=== PATIENT | female | born 1975 | race American Indian/Alaskan Native ===

== ENCOUNTER 2019-12-03 09:36 | Day surgery (SDC) | payer OTHER ==
[2019-12-02 10:19] LABS: Absolute Lymphocytes (CBC) 2.6 K/uL (0.7-4.9); Basophils % 0.8 % (0-1.3); Hematocrit 28.6 % (36.0-45.0); Lymphocytes % 34.5 % (15.3-44.8); MPV 9.8 fL (7.6-11.3); RBC Red Blood Cell Count 4.11 M/uL (3.86-4.86)
[2019-12-02 12:49] LABS: Anisocytosis 1+; Blood Morphology Comment NOTED (NOT SEEN); Platelet Estimate ADEQ; Urine White Blood Cell Casts OK
[2019-12-03] MEDS ORDERED: Ringers Lactate 1,000 ML IV ONE (10:14)
[2019-12-03] MEDS ORDERED: CEFAZOLIN/SWI 2gm 2 GM/20 ML SYR ONE (10:14)
[2019-12-03] MEDS ORDERED: LIDOCAINE 2% MPF 5 ML VIAL ONE (10:53)
[2019-12-03] MEDS ORDERED: MIDAZOLAM HCL 2 MG/2 ML INJ ONE (10:53)
[2019-12-03] MEDS ORDERED: propofoL 200 MG/20 ML VIAL IV ONE (10:53)
[2019-12-03] MEDS ORDERED: FENTANYL CITR 100 MCG/2 ML ONE (10:53)
[2019-12-03] MEDS ORDERED: LIDOCAINE 1% W/EPI 1:100,000 MDV 20 ML VIAL ONE (11:35)
[2019-12-03] MEDS ORDERED: NA CHLORIDE 0.9% 0 ML ONE (11:36)
[2019-12-03] MEDS ORDERED: VASOPRESSIN 20 UNIT/ML VIAL ONE (11:36)
[2019-12-03] MEDS ORDERED: dexAMETHasone 10 MG/ML VIAL ONE (11:48)
[2019-12-03] MEDS ORDERED: KETOROLAC 30 MG/ML INJ ONE (12:00)
[2019-12-03] MEDS ORDERED: GLYCOPYRROLATE 0.2 MG/ML SYR ONE (12:05)
[2019-12-03] MEDS ORDERED: ONDANSETRON 4 MG/2 ML VIAL ONE (12:18)
[2019-12-03 12:29] VITALS: O2SAT 100
[2019-12-03] MEDS ORDERED: NA CHLORIDE 0.9% 1,000 ML ONE (12:45)
[2019-12-03] MEDS ORDERED: HYDROCODONE/APAP 5/325 MG TAB ONE (13:40)
[2019-12-03 14:38] VITALS: BP 127/65; TEMP 97.9
--- NOTE | 2019-12-03 21:24 | OP ---
Date of Procedure: 12/03/2019 Surgeon: Bebe Burk MD Preoperative Diagnoses: Menorrhagia, chronic iron deficiency anemia. Postoperative Diagnoses: Menorrhagia, chronic iron deficiency anemia. Procedure Performed: Hysteroscopy, cervical dilation and endometrial ablation with NovaSure. Anesthesia: General with LMA. Specimens: No specimens. Complications: No complications. Drains: No drains. Condition: Stable. Findings: Uterine cavity empty, anteflexed. Cervix had to be dilated to 16-Rwandan before I could ev en insert the hysteroscope. The cavity length was 5 cm, width was 3 cm, power setting 83 souza, T 76 seconds. There was excellent ablation effect after the procedure was performed on hysteroscopy. Indications: The patient is a 44-year-old with heavy bleeding, perimenopausal with her FSH elevated, but not in the menopausal range, complaining of heavy bleeding. Even the last month, she had very h eavy flow. Her hemoglobin has been chronically low, however, most recent was 9.6. She complains abo ut fatigue and other symptoms. So, discussed about the alternatives including an IUD and an ablation . 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 Description Of Procedure: She was consented and brought to the OR. She was given 2 g of Ancef, take n back to OR, placed in a supine fashion on the operating table. General anesthesia was given and th en she was placed in a dorsal lithotomy position. Pelvic exam was performed. Difficult exam due to her body habitus. Vulva, vagina prepped with Betadine. Speculum placed to expose the cervix. Anterior lip grasped wit h 2 Allis clamps. Dilation to 16-Rwandan. Diagnostic hysteroscope SlimLine introduced into the cervi pb canal. No intracavitary lesions. Endometrium appeared to be unremarkable. Both tubal ostia wer e visualized. The top of the fundus was measured at 8.5 cm. The internal os was measured at 3.5 cm. Calculated cavity length 5 cm. It was input into the generator. The NovaSure device was taken primed and then inserted into the uterine cavity without any problems. After the found was deployed, the calculated width was 3 cm. After occluding the external os with t he occluder, the cavity occlusion test was done and it passed. The device was enabled and the power setting was 83 souza. Ablation cycle was started and an uninterrupted cycle was conducted for 76 sec onds. The device was undeployed in the usual fashion, removed. Hysteroscopy performed. The cavity was rinsed out. There was excellent ablation effect from both ostium to ostium and from the fundus a ll the way down to the internal os. After cleaning out the ablated tissue from the cavity, the scope was removed. All the instruments were removed. Instrument, needle, and sponge counts were done and were correct at the end of the case. The patient received 30 mg of Toradol intravenously. During t he procedure, she was stable and she has a 4 week followup on December 29. She has been given all the instructions. Pain prescription called into her pharmacy. Procedure will be discussed with her husb and. Findings and instruction sheet given. HENRY/ERIC Voice ID: [id number] Report ID: [id number]
== END 2019-12-03 14:15 | disposition home or self-care (01) ==
LOC: OR 09:36
PROVIDERS: ATTEND Obstetrics & Gynecology
PROC: 0U5B8ZZ Destruction of Endometrium, Via Natural or Artificial Opening Endoscopic (ICD-10-PCS; principal; 2019-12-03 10:30)
DX: N92.1 Excessive and frequent menstruation with irregular cycle (principal); D50.0 Iron deficiency anemia secondary to blood loss (chronic); E03.9 Hypothyroidism, unspecified; Z11.59 Encounter for screening for other viral diseases
CPT/HCPCS: 85025; 36415; 81025; 58563; U0002; J2704; J2250; J3010; J1100; J0690; J7120; J7030; J2405

== ENCOUNTER 2023-09-14 20:54 | Emergency (ER) | payer OTHER ==
--- OUTSIDE RECORDS SUMMARY | 2023-09-14 20:57 | XMS REPORT | Continuity of Care Document ---
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
[2023-09-14] MEDS ORDERED: ACETAMINOPHEN 500 MG TAB ONE (21:41)
[2023-09-14] MEDS ORDERED: IBUPROFEN 200 MG TAB PO ONE (21:41)
[2023-09-14] MEDS ORDERED: CEFTRIAXONE 1000 MG/VIAL ONE (21:41)
[2023-09-14] MEDS ORDERED: AZITHROMYCIN 250 MG TAB ONE (21:42)
[2023-09-14] MEDS ORDERED: IBUPROFEN 400 MG TAB ONE (21:42)
[2023-09-14] MEDS ORDERED: NA CHLORIDE 0.9% 2,000 ML ONE (21:42)
[2023-09-14 22:01] LABS: Absolute Eosinophils 0.2 K/uL (0-0.5); Absolute Lymphocytes (CBC) 1.3 K/uL (0.7-4.9); Absolute Neutrophil 11.3 K/uL (1.8-8.0); Basophils % 0.3 % (0-1.3); Eosinophils % 1.6 % (0-4.4); Hematocrit 33.9 % (36.0-45.0); Hemoglobin 11.6 g/dL (12.0-15.0); Lymphocytes % 9.3 % (15.3-44.8); MCH 27.3 pg (27.0-35.0); MCHC 34.1 g/dL (32.0-36.0); MCV 80.1 fL (80-100); MPV 9.2 fL (7.6-11.3); Monocytes % 7.3 % (3.3-12.3); Neutrophils % 81.5 % (41.7-73.7); Nucleated Red Blood Cells % 0.1 % (0-0); Platelets 214 thou/uL (152-406); RBC Red Blood Cell Count 4.23 M/uL (3.86-4.86); Red Cell Distribution Width 13.3 % (12.1-15.2)
--- NOTE | 2023-09-14 22:04 | RAD REPORT ---
EXAM DESCRIPTION: RAD - Chest Pa And Lat (2 Views) - 09/14/2023 9:57 pm CLINICAL HISTORY: COUGH Chest pain. COMPARISON: No comparisons FINDINGS: Interstitial markings are present bilaterally. This may indicate viral infection or reacti ve airway disease. No consolidation to indicate bacterial pneumonia. The heart is normal in size. No displaced fractures.
[2023-09-14 22:19] LABS: Albumin 3.6 g/dL (3.4-5.0); Albumin/Globulin Ratio 0.9 (1.1-1.8); Anion Gap 10.1 mEq/L (5.0-15.0); Bilirubin Total 0.4 mg/dL (0.2-1.0); Potassium 4.1 mEq/L (3.5-5.1); Protein, Total 7.6 g/dL (6.4-8.2)
[2023-09-14 22:20] LABS: SARS-CoV-2 Antigen CONTROL BLUE LINE VIS/BG OK; SARS-CoV-2 Antigen Rapid Res Negative (Negative)
--- NOTE | 2023-09-14 23:21 | EDPHYS ---
Physician Documentation [facility] Name: Edgar Paul Age: 48 yrs Sex: Female : 1975 Arrival Date: 09/14/2023 Time: 20:54 Bed 10 Private MD: ED Physician Blade Davila HPI: 09/13 23:11 This 48 yrs old Female presents to ER via Ambulatory with complaints of anthony Fever, Chills. 23:11 The patient reports fever, that was measured at 100.6 degrees Fahrenheit. Onset: The anthony symptoms/episode began/occurred 2 day(s) ago. Modifying factors: there are no obvious modifying factors. Associated signs and symptoms: Pertinent positives: chills, cough, nausea. Severity of symptoms: At their worst the symptoms were mild in the emergency department the symptoms are unchanged. The patient has experienced similar episodes in the past, a few times. 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 - Infectious Disease History:: Denies. - Social history:: Smoking status: Patient denies any tobacco usage or history of. ROS: 23:15 Eyes: Negative for injury, pain, redness, and discharge, ENT: Negative for injury, anthony pain, and discharge, Neck: Negative for injury, pain, and swelling, Cardiovascular: Negative for chest pain, palpitations, and edema, Respiratory: Negative for shortness of breath, cough, wheezing, and pleuritic chest pain, Abdomen/GI: Negative for abdominal pain, nausea, vomiting, diarrhea, and constipation, Back: Negative for injury and pain, : Negative for injury, bleeding, discharge, and swelling, MS/Extremity: Negative for injury and deformity, Skin: Negative for injury, rash, and discoloration, Neuro: Negative for headache, weakness, numbness, tingling, and seizure, Psych: Negative for depression, anxiety, suicide ideation, homicidal ideation, and hallucinations, Allergy/Immunology: Negative for hives, rash, and allergies, Endocrine: Negative for neck swelling, polydipsia, polyuria, polyphagia, and marked weight changes, 23:15 Constitutional: Positive for body aches, chills, fatigue, fever, malaise, Exam: 23:15 Head/Face: Normocephalic, atraumatic. Eyes: Pupils equal round and reactive to light, anthony extra-ocular motions intact. Lids and lashes normal. Conjunctiva and sclera are non-icteric and not injected. Cornea within normal limits. Periorbital areas with no swelling, redness, or edema. ENT: Nares patent. No nasal discharge, no septal abnormalities noted. Tympanic membranes are normal and external auditory canals are clear. Oropharynx with no redness, swelling, or masses, exudates, or evidence of obstruction, uvula midline. Mucous membranes moist. Neck: Trachea midline, no thyromegaly or masses palpated, and no cervical lymphadenopathy. Supple, full range of motion without nuchal rigidity, or vertebral point tenderness. No Meningismus. Chest/axilla: Normal chest wall appearance and motion. Nontender with no deformity. No lesions are appreciated. Cardiovascular: Regular rate and rhythm with a normal S1 and S2. No gallops, murmurs, or rubs. Normal PMI, no JVD. No pulse deficits. Respiratory: Lungs have equal breath sounds bilaterally, clear to auscultation and percussion. No rales, rhonchi or wheezes noted. No increased work of breathing, no retractions or nasal flaring. Abdomen/GI: Soft, non-tender, with normal bowel sounds. No distension or tympany. No guarding or rebound. No evidence of tenderness throughout. Back: No spinal tenderness. No costovertebral tenderness. Full range of motion. Skin: Warm, dry with normal turgor. Normal color with no rashes, no lesions, and no evidence of cellulitis. MS/ Extremity: Pulses equal, no cyanosis. Neurovascular intact. Full, normal range of motion. Neuro: Awake and alert, GCS 15, oriented to person, place, time, and situation. Cranial nerves II-XII grossly intact. Motor strength 5/5 in all extremities. Sensory grossly intact. Cerebellar exam normal. Normal gait. Psych: Awake, alert, with orientation to person, place and time. Behavior, mood, and affect are within normal limits. 23:15 Constitutional: The patient appears well developed, febrile, 23:15 Musculoskeletal/extremity: Circulation is intact in all extremities. Sensation intact. Compartment Syndrome exam of affected extremity: DVT Exam: No signs of deep vein thrombosis. no pain, no swelling, no tenderness, negative Homans' sign noted on exam, no appreciated bluish discoloration, no erythema, no increased warmth, Vital Signs: 21:04 BP 167 / 83; Pulse 123; Resp 17 S; Temp 100.6; Pulse Ox 97% on R/A; Weight 73.94 kg; ha1 22:30 BP 165 / 75; Pulse 111; Resp 16; Pulse Ox 98% on R/A; km8 23:47 BP 141 / 80; Pulse 102; Resp 16; Temp 99.9(O); Pulse Ox 99% on R/A; km8 09/14 00:29 BP 125 / 70; Pulse 99; Resp 18; Pulse Ox 100% ; cm10 Josh Coma Score: 09/13 21:58 Eye Response: spontaneous(4). Motor Response: obeys commands(6). Verbal Response: km8 oriented(5). Total: 15. MDM: 21:08 Patient medically screened. [facility] 23:17 Differential diagnosis: viral Infection, bacterial infection, bronchitis, pneumonia anthony UTI, gastroenteritis. Data reviewed: vital signs, nurses notes, lab test result(s), radiologic studies. Consideration of Admission/Observation Escalation of care including admission/observation considered. I considered the following discharge prescriptions or medication management in the emergency department Medications were administered in the Emergency Department. See MAR. Independent interpretation of the following test(s) in the Emergency Department X-Ray: My interpretation is cxr. Test considered but Not performed: EKG: no ekg. Historians other than the Patient: Spouse/Significant Other: well informed. Care significantly affected by the following chronic conditions: Hypertension, Obesity. Counseling: I had a detailed discussion with the patient and/or guardian regarding the historical points, exam findings, and any diagnostic results supporting the discharge/admit diagnosis, lab results, radiology results, the need for outpatient follow up, for definitive care, a family practitioner. 09/13 21:10 Order name: CBC with Diff; Complete Time: 23:08 [facility] 09/13 21:10 Order name: Comprehensive Metabolic Panel; Complete Time: 23:08 [facility] 09/13 21:10 Order name: Blood Culture Adult (2) [facility] 09/13 21:10 Order name: Lactate w/ 2H reflex if indic.; Complete Time: 23:08 [facility] 09/13 21:10 Order name: Urinalysis w/ reflexes [facility] 09/13 21:10 Order name: Strep; Complete Time: 23:08 [facility] 09/13 21:10 Order name: SARS RAPID; Complete Time: 23:08 [facility] 09/13 21:10 Order name: Flu; Complete Time: 23:08 [facility] 09/13 22:24 Order name: Throat Culture EDMS 09/13 21:10 Order name: Chest Pa And Lat (2 Views) XRAY; Complete Time: 23:08 [facility] 09/13 23:17 Order name: PO challenge; Complete Time: 23:31 [facility] Administered Medications: 21:55 Drug: NS 0.9% IV 1000 ml IV at 1 bolus Per protocol; 1000 mL bolus Route: IV; Rate: 1 km8 bolus; Site: right antecubital; 09/14 00:22 Follow up: Response: No adverse reaction; IV Status: Completed infusion; IV Intake: cm10 1000ml 09/13 21:56 Drug: NS 0.9% IV 1000 ml IV at 1 bolus Per protocol; 1000 mL bolus Route: IV; Rate: 1 km8 bolus; Site: right antecubital; 09/14 00:22 Follow up: Response: No adverse reaction; IV Status: Completed infusion; IV Intake: cm10 1000ml 09/13 22:00 Drug: Ibuprofen PO 600 mg PO once Route: PO; [facility] 23:31 Follow up: Response: No adverse reaction; Temperature is decreased [facility] 22:00 Drug: Acetaminophen PO 1000 mg PO once Route: PO; 8 23:31 Follow up: Response: No adverse reaction; Temperature is decreased 8 22:00 Drug: AZITHromycin PO 500 mg PO once Route: PO; 8 23:31 Follow up: Response: No adverse reaction [facility] 22:10 Drug: Rocephin IV 1 grams IV at per protocol once; Given slow IV push per pharmacy km8 instructions Route: IV; Rate: per protocol; Site: right antecubital; 23:31 Follow up: Response: No adverse reaction [facility] 09/14 00:31 Follow up: Response: No adverse reaction; IV Status: Completed infusion; IV Intake: cm10 100ml 09/13 23:40 Drug: Decadron - Dexamethasone IVP 10 mg IVP once Route: IVP; Site: right antecubital; 8 09/14 00:22 Follow up: Response: No adverse reaction cm10 00:22 Drug: diphenhydrAMINE IVP 25 mg IVP once Route: IVP; Site: right antecubital; cm10 00:29 Follow up: Response: No adverse reaction; Medication administered at discharge. cm10 00:22 Drug: Ketorolac IVP 15 mg IVP once Route: IVP; Site: right antecubital; cm10 00:29 Follow up: Response: No adverse reaction; Medication administered at discharge. cm10 00:22 Drug: metoCLOPramide IVP 10 mg IVP once; over 1 to 2 minutes Route: IVP; Site: right cm10 antecubital; 00:29 Follow up: Response: No adverse reaction; Medication administered at discharge. cm10 Disposition Summary: 09/14/23 23:20 Discharge Ordered Notes: Location: Home anthony Problem: new anthony Symptoms: have improved anthony Condition: Stable anthony Diagnosis - Fever, unspecified anthony - Cough anthony - Acute upper respiratory infection, unspecified anthony - Elevated white blood cell count, unspecified anthony Followup: anthony - With: Private Physician - When: 2 - 3 days - Reason: Recheck today's complaints, Continuance of care, Re-evaluation by your physician Discharge Instructions: - Discharge Summary Sheet anthony - Fever, Adult anthony - Upper Respiratory Infection, Adult anthony - Cool Mist Vaporizer anthony - Upper Respiratory Infection, Adult, [id number] anthony - Cough, Adult, [id number] anthony - Cough, Adult anthony - Fever, Adult, [id number] [facility] Forms: - Medication Reconciliation Form [facility] - Antibiotic Education anthony - Prescription Opioid Use [facility] - Patient Portal Instructions [facility] - Leadership Thank You Letter [facility] Prescriptions: - Tessalon Perles 100 mg Oral capsule - take 2 capsule ORAL route every 8 hours As needed; 30 capsule; Refills: 0, anthony Product Selection Permitted - Medrol (Bonifacio) 4 mg Oral Tablets, Dose Pack - take 1 tablet ORAL route as directed - follow package instructions; 1 packet; [facility] Refills: 0, Product Selection Permitted - Zithromax 500 mg Oral Tablet - take 1 tablet ORAL route once daily for 5 days; 5 tablet; Refills: 0, Product anthony Selection Permitted Signatures: Dispatcher [employer] Blade Ortiz MD MD cha Ayala, Heidy RN RN ha1 Seema Fox RN RN cm10 Lydia Gan, RN RN km8
--- NOTE | 2023-09-14 23:21 | ER ---
Nurse's Notes [facility] Name: Edgar Paul Age: 48 yrs Sex: Female : 1975 Arrival Date: 09/14/2023 Time: 20:54 Bed 10 Private MD: Diagnosis: Fever, unspecified;Cough;Acute upper respiratory infection, unspecified;Elevated white blood cell count, unspecified Presentation: 09/13 21:04 Chief complaint: Patient states: cough, body aches, and fever. Coronavirus screen: ha1 Vaccine status: Patient reports receiving the 2nd dose of the covid vaccine. Moderna. Ebola Screen: No symptoms or risks identified at this time. Initial Sepsis Screen: Does the patient meet any 2 criteria? No. Patient's initial sepsis screen is negative. Does the patient have a suspected source of infection? No. Patient's initial sepsis screen is negative. Risk Assessment: Do you want to hurt yourself or someone else? Patient reports no desire to harm self or others. Onset of symptoms was September 14, 2023. 21:04 Method Of Arrival: Ambulatory ha1 21:04 Acuity: NEHAL 4 ha1 Triage Assessment: 21:06 General: Appears uncomfortable, Behavior is calm, cooperative. Pain: Complains of pain ha1 in body aches. Neuro: Level of Consciousness is awake, alert, obeys commands, Oriented to person, place, time, situation. Cardiovascular: Capillary refill < 3 seconds Patient's skin is warm and dry. Respiratory: Reports cough that is productive, runny nose Airway is patent Respiratory effort is even, unlabored, Respiratory pattern is regular, symmetrical. 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 - Infectious Disease History:: Denies. - Social history:: Smoking status: Patient denies any tobacco usage or history of. Screenin:58 [facility] ED Fall Risk Assessment (Adult) History of falling in the last 3 months, km8 including since admission No falls in past 3 months (0 pts) Confusion or Disorientation No (0 pts) Intoxicated or Sedated No (0 pts) Impaired Gait No (0 pts) Mobility Assist Device Used No (0 pt) Altered Elimination No (0 pt) Score/Fall Risk Level 0 - 2 = Low Risk Oriented to surroundings, Maintained a safe environment, Educated pt \T\ family on fall prevention, incl call for assistance when getting out of bed, Assessed \T\ reinforced patient's understanding of fall precautions. Abuse screen: Denies threats or abuse. Denies injuries from another. Nutritional screening: No deficits noted. Tuberculosis screening: No symptoms or risk factors identified. Assessment: 21:58 General: Appears in no apparent distress. uncomfortable, Behavior is calm, cooperative, km8 appropriate for age. Pain: Complains of pain in generalized body Pain currently is 7 out of 10 on a pain scale. Quality of pain is described as aching. Neuro: Level of Consciousness is awake, alert, obeys commands, Oriented to person, place, time, situation, Appropriate for age. Cardiovascular: Denies chest pain, shortness of breath, Patient's skin is warm and dry. Respiratory: Airway is patent Respiratory effort is even, unlabored, Respiratory pattern is regular, symmetrical. GI: No signs and/or symptoms were reported involving the gastrointestinal system. : No signs and/or symptoms were reported regarding the genitourinary system. EENT: No signs and/or symptoms were reported regarding the EENT system. Derm: Skin is intact, is healthy with good turgor, Skin is dry, Skin is pink, warm \T\ dry. normal, Skin temperature is warm. Musculoskeletal: No signs and/or symptoms reported regarding the musculoskeletal system. Range of motion: intact in all extremities. 22:30 Reassessment: Patient appears in no apparent distress at this time. No changes from [facility] previously documented assessment. Patient and/or family updated on plan of care and expected duration. Pain level reassessed. Patient is alert, oriented x 3, equal unlabored respirations, skin warm/dry/pink. 23:49 Reassessment: Patient appears in no apparent distress at this time. Patient and/or 8 family updated on plan of care and expected duration. Pain level reassessed. Patient is alert, oriented x 3, equal unlabored respirations, skin warm/dry/pink. Patient states symptoms have improved. 23:50 Reassessment: pt wants to finish fluids before d/c. km Vital Signs: 21:04 BP 167 / 83; Pulse 123; Resp 17 S; Temp 100.6; Pulse Ox 97% on R/A; Weight 73.94 kg; ha1 22:30 BP 165 / 75; Pulse 111; Resp 16; Pulse Ox 98% on R/A; km8 23:47 BP 141 / 80; Pulse 102; Resp 16; Temp 99.9(O); Pulse Ox 99% on R/A; km8 09/14 00:29 BP 125 / 70; Pulse 99; Resp 18; Pulse Ox 100% ; cm10 [place] Coma Score: 09/13 21:58 Eye Response: spontaneous(4). Motor Response: obeys commands(6). Verbal Response: km8 oriented(5). Total: 15. ED Course: 20:56 Patient arrived in ED. mr 21:06 Triage completed. ha1 21:07 Blade Davila MD is Attending Physician. [facility] 21:09 Lydia Gan, RN is Primary Nurse. km8 21:56 Chest Pa And Lat (2 Views) XRAY In Process Unspecified. EDMS 21:56 Flu Sent. km8 21:56 SARS RAPID Sent. km8 21:56 Strep Sent. km8 21:56 Lactate w/ 2H reflex if indic. Sent. km8 21:56 Blood Culture Adult (2) Sent. km8 21:56 Comprehensive Metabolic Panel Sent. km8 21:56 CBC with Diff Sent. km8 21:58 Patient has correct armband on for positive identification. Bed in low position. Call [facility] light in reach. Side rails up X 1. Pulse ox on. NIBP on. 21:58 Warm blanket given. km8 21:59 No provider procedures requiring assistance completed. km8 21:59 Arm band placed on right wrist. km8 23:48 Provided Education on: d/c teaching. 8 09/14 00:30 IV discontinued, intact, bleeding controlled, No redness/swelling at site. Pressure cm10 dressing applied. Administered Medications: 09/13 21:55 Drug: NS 0.9% IV 1000 ml IV at 1 bolus Per protocol; 1000 mL bolus Route: IV; Rate: 1 km8 bolus; Site: right antecubital; 09/14 00:22 Follow up: Response: No adverse reaction; IV Status: Completed infusion; IV Intake: cm10 1000ml 09/13 21:56 Drug: NS 0.9% IV 1000 ml IV at 1 bolus Per protocol; 1000 mL bolus Route: IV; Rate: 1 km8 bolus; Site: right antecubital; 09/14 00:22 Follow up: Response: No adverse reaction; IV Status: Completed infusion; IV Intake: cm10 1000ml 09/13 22:00 Drug: Ibuprofen PO 600 mg PO once Route: PO; km8 23:31 Follow up: Response: No adverse reaction; Temperature is decreased 8 22:00 Drug: Acetaminophen PO 1000 mg PO once Route: PO; km8 23:31 Follow up: Response: No adverse reaction; Temperature is decreased 8 22:00 Drug: AZITHromycin PO 500 mg PO once Route: PO; km8 23:31 Follow up: Response: No adverse reaction [facility] 22:10 Drug: Rocephin IV 1 grams IV at per protocol once; Given slow IV push per pharmacy 8 instructions Route: IV; Rate: per protocol; Site: right antecubital; 23:31 Follow up: Response: No adverse reaction [facility] 09/14 00:31 Follow up: Response: No adverse reaction; IV Status: Completed infusion; IV Intake: cm10 100ml 09/13 23:40 Drug: Decadron - Dexamethasone IVP 10 mg IVP once Route: IVP; Site: right antecubital; [facility] 09/14 00:22 Follow up: Response: No adverse reaction 10 00:22 Drug: diphenhydrAMINE IVP 25 mg IVP once Route: IVP; Site: right antecubital; 10 00:29 Follow up: Response: No adverse reaction; Medication administered at discharge. cm10 00:22 Drug: Ketorolac IVP 15 mg IVP once Route: IVP; Site: right antecubital; cm10 00:29 Follow up: Response: No adverse reaction; Medication administered at discharge. cm10 00:22 Drug: metoCLOPramide IVP 10 mg IVP once; over 1 to 2 minutes Route: IVP; Site: right cm10 antecubital; 00:29 Follow up: Response: No adverse reaction; Medication administered at discharge. 10 Medication: 09/13 21:58 VIS not applicable for this client. km8 Intake: 09/14 00:22 IV: 1000ml; Total: 1000ml. cm10 00:22 IV: 1000ml; Total: 2000ml. cm10 00:31 IV: 100ml; Total: 2100ml. cm10 Outcome: 09/13 23:20 Discharge ordered by . anthony 09/14 00:30 Discharged to home via wheelchair, with family, cm10 Condition: good Discharge instructions given to patient, Instructed on discharge instructions, follow up and referral plans. medication usage, Demonstrated understanding of instructions, follow-up care, medications, 00:30 Prescriptions given X 3, cm10 00:30 Patient left the ED. cm10 Signatures: Dispatcher [employer] EDIA Blade Davila MD MD cha Rivera, Mary, Reg Reg mr CynthiaElly, RN RN ha1 Seema Fox RN RN cm10 Lydia Gan RN RN km8 Corrections: (The following items were deleted from the chart) 09/13 22:35 21:58 Pain: Denies pain. km8 km8
[2023-09-14] MEDS ORDERED: dexAMETHasone 10 MG/ML VIAL ONE (23:32)
[2023-09-14 23:35] LABS: Specific Gravity 1.007 (1.005-1.030); Sqamous Epithelial <5 /HPF (None Seen); Urine Bacteria None Seen /HPF (<20); Urine Bilirubin NEGATIVE (Negative); Urine Blood Trace (Negative); Urine Clarity Clear (Clear); Urine Color Colorless (Yellow); Urine Culture Reflex Order NOT NEEDED; Urine Glucose NEGATIVE (Negative); Urine Ketones NEGATIVE (Negative); Urine Microscopic Reflex YN ORDER UMIC; Urine Mucus Slight /HPF (None Seen); Urine Nitrite NEGATIVE (Negative); Urine Protein NEGATIVE (Negative); Urine RBC <5 /HPF (None Seen); Urine Urobilinogen Normal (Normal); Urine WBC <5 /HPF (<5)
[2023-09-15] MEDS ORDERED: KETOROLAC 30 MG/ML INJ ONE (00:04)
[2023-09-15] MEDS ORDERED: DIPHENHYDRAMINE 50 MG/ML VIAL ONE (00:05)
[2023-09-15] MEDS ORDERED: METOCLOPRAMIDE 10 MG/2mL INJ ONE (00:05)
[2023-09-15 00:40] VITALS: BP 125/70; TEMP 99.9; O2SAT 100
== END 2023-09-15 00:30 | disposition home or self-care (01) ==
LOC: ER 20:54
DX: J06.9 Acute upper respiratory infection, unspecified (principal); R05.9 Cough, unspecified; D72.829 Elevated white blood cell count, unspecified; Z11.52 Encounter for screening for COVID-19
CPT/HCPCS: 96365; 87040 ×2; 87070; 85025; 81001; 36415; 87081; 83605; 80053; 87804 ×2; 71046; 96375; 99284; 96366; 87811; J2765; J1200; J1100; J7030; J0696